=== PATIENT | female | born 1990 | race African-American/Black ===

== ENCOUNTER 2016-09-17 21:55 | Inpatient (IN) | payer OTHER ==
[2016-09-18] MEDS: LACTATED RINGERS 1,000 ML IV SCH ×2 (00:42→07:16)
--- NOTE | 2016-09-18 05:02 | P.HPOB ---
History of Present Illness H&P Date: 09/18/16 Chief Complaint: IUP 39 weeks bradycardia: labor Patrica 26 at 39 weeks gestation arrives complaining of contractions. She notes she had contractions much of the day but thin gotten worse through the evening and were strong enough that she felt she did come in. 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 However due to history of rapid labor with her last baby we did keep her for another hour and she went from 3 cm to 4 cm. It was also noted through this process that the heart tones initially had a baseline of about 1:15 and reactive to baseline over the next few hours showed trending down to the baseline in the 110 and still reactive. While it did not appear she was in active labor we did admit her for continued monitoring and to rule out early labor. Approximately 4:00 we did call me to let me know at the baby's heart tones had settled to baseline was closer to 100 therefore came into the hospital and evaluated the patient. heart tones to have baseline between 95 and 100 at this time with accelerations to the 120s. There is no evidence looking to monitor teaser decelerations and it did not appear to have any tendency to be related to the contractions that she is having. She is having relatively irregular contractions at this time. After discussing with the patient our findings are is been decided to go ahead and do artificial rupture membranes we can have an internal scalp electrode placed and have better understanding of what is going on with her heart tones. Patient had copious amounts of clear amniotic fluid? Polyhydramnios. An internal scalp electrode was easily placed and now we will be able to up cervix the heart tones a little bit more easily. We'll likely start Pitocin shortly after we evaluate how the baby tolerates the rupture of membranes. She's currently dilated to 5 cm 90% effaced and -3 station. On physical exam vital signs are stable she is afebrile. Heart regular, lungs clear, extremities without pain. Gravid uterus is noted. Assessment intrauterine at 39 weeks. Plan induction of labor Past Medical History Past Medical History: No Reported History Additional Past Medical History / Comment(s): Vaginal bleeding History of Any Multi-Drug Resistant Organisms: None Reported Past Surgical History: No Surgical Hx Reported Additional Past Surgical History / Comment(s): [place] teeth, D&C 10/2015 Past Anesthesia/Blood Transfusion Reactions: No Reported Reaction Past Psychological History: Depression Additional Psychological History / Comment(s): effexor pre- Smoking Status: Never smoker Past Alcohol Use History: None Reported Past Drug Use History: None Reported - Past Family History Mother Family Medical History: Cancer Additional Family Medical History / Comment(s): Pancreatic Father Family Medical History: Cancer Additional Family Medical History / Comment(s): Lung Medications and Allergies Home Medications Medication Instructions Recorded Confirmed Type Pnv with Ca,No.72/Iron/FA [Pnv 1 tab PO DAILY 09/05/16 09/17/16 History Plus Multivit Tab] Allergies Allergy/AdvReac Type Severity Reaction Status Date / Time No Known Allergies Allergy Verified 09/17/16 22:12 Exam Osteopathic Statement: *. No significant issues noted on an osteopathic structural exam other than those noted in the History and Physical/Consult. - Vital Signs Vital signs: Vital Signs Temp Pulse Resp BP Pulse Ox 09/18/16 00:38 97.1 F L 66 14 115/58 100 09/17/16 22:13 97.0 F L 80 14 119/57 100 Intake and Output 09/17/16 09/17/16 09/18/16 14:59 22:59 06:59 Other: # Voids 1 Weight 58.967 kg Patient Weight 09/18/16 06:59 Weight 58.967 kg - OBG Physical Exam Breast: both: normal (no masses) Abdomen: bowel sounds normal, no diffuse tenderness, no bruit present, no guarding noted, no hepatomegaly, no splenomegaly, no mass Vulva: both: normal Vagina: normal moisture, no discharge Cervix: no lesion, no discharge Uterus: normal size, normal contour Adnexa: both: normal Anus/Rectum: normal perianal skin, no rectal mass, no hemorrhoids, heme negative
[2016-09-18] MEDS ORDERED: LIDOCAINE 1% (PF) 10 MG/ML (30 ML SDV) SQ PRN (05:05)
[2016-09-18] MEDS ORDERED: OXYTOCIN 10 UNIT/ML 1 ML VIAL IM PRN (05:05)
[2016-09-18] MEDS ORDERED: CARBOPROST TROMETHAMINE 250 MCG/ML 1 ML AMP IM PRN (05:05)
[2016-09-18] MEDS ORDERED: TERBUTALINE 1 MG/ML VIAL SQ PRN (05:05)
[2016-09-18] MEDS ORDERED: METHYLERGONOVINE 0.2 MG/ML 1 ML AMP IM PRN (05:05)
[2016-09-18] MEDS ORDERED: LACTATED RINGERS 1,000 ML IV SCH (05:15)
[2016-09-18 05:31] LABS: Anisocytosis Slight; Basophils % (A) 1 %; CH 20.7; CHCM 29.5; Eosinophils # (A) 0.1 k/uL (0-0.7); Eosinophils % (A) 1 %; HCT 34.3 % (34.0-46.0); HDW 3.76; HGB 10.1 gm/dL (11.4-16.0); Hypochromasia Marked; Luc # (Auto) 0.33; Luc % (Auto) 4; Lymphocytes # (A) 2.1 k/uL (1.0-4.8); Lymphocytes % (A) 28 %; MCH 20.9 pg (25.0-35.0); MCHC 29.5 g/dL (31.0-37.0); MCV 70.9 fL (80.0-100.0); Mean Platelet Volume 8.8; Microcytosis Marked; Monocytes # (A) 0.6 k/uL (0-1.0); Monocytes % (A) 8 %; Neutrophils # (A) 4.3 k/uL (1.3-7.7); Neutrophils % (A) 58 %; Poikilocytosis Slight; RBC 4.85 m/uL (3.80-5.40); WBC 7.4 k/uL (3.8-10.6); WBC (Perox) 8.12
[2016-09-18] MEDS ORDERED: OXYTOCIN 30 UNITS/500 ML NS 30 UNIT in SALINE 1 500ML.BAG IV SCH ×2 (08:00→12:30)
[2016-09-18] MEDS ORDERED: BUTORPHANOL 1 MG/ML 1 ML VIAL IV PRN (09:10)
[2016-09-18 12:07] VITALS: RESP 16
[2016-09-18] MEDS ORDERED: Acetaminophen-Codeine 300-30mg TAB PO PRN ×2 (12:21)
[2016-09-18] MEDS ORDERED: diphenhydrAMINE 50 MG/ML 1 ML VIAL IVP PRN ×2 (12:21)
[2016-09-18] MEDS ORDERED: LANOLIN CREAM 5 GM TUBE TOPICAL PRN (12:21)
[2016-09-18] MEDS ORDERED: diphenhydrAMINE 50 MG CAP PO PRN (12:21)
[2016-09-18] MEDS ORDERED: diphenhydrAMINE 25 MG CAP PO PRN (12:21)
[2016-09-18] MEDS ORDERED: HYDROCORTISONE 2.5% RECTAL CREAM 30 GM TUBE RECTAL PRN (12:21)
[2016-09-18] MEDS ORDERED: SIMETHICONE 80 MG CHEWABLE PO PRN (12:21)
[2016-09-18] MEDS ORDERED: ACETAMINOPHEN TAB 325 MG TAB PO PRN (12:21)
[2016-09-18] MEDS ORDERED: ZOLPIDEM 5 MG TAB PO PRN (12:21)
[2016-09-18] MEDS: IBUPROFEN 600 MG TAB PO PRN ×2 (12:35→19:49)
--- NOTE | 2016-09-18 17:02 | P.PROBDLV ---
Vaginal Delivery Note - . Vaginal Delivery Note: 26-year-old presented at 39 weeks gestation complaining of contractions. Please see Dr. Nunn's dictation for details on admission. Amniotomy was performed at 4:53 AM and clear fluid noted. After 2 hours she was still 5 cm dilated, 80% effaced, and -2 station. Pitocin augmentation was started. She progressed to complete at 11:03 AM, pushed, and delivered a viable female over intact perineum at 11:10 AM. Head delivered OA, anterior shoulder delivered gentle downward traction followed by posterior shoulder and rest of body. Nose and mouth bulb suctioned, cord clamped and cut, infant placed mother 's abdomen. Apgars 6 at 1 minute, 7 at 5 minutes, 7 at 10 minutes. Weight was 5 lbs. 12 oz. Placenta delivered spontaneously, intact with three-vessel cord at 11:12 AM. Vagina, cervix, perineum inspected. No lacerations noted. Mother and baby in stable condition.
[2016-09-18] MEDS: SENNOSIDES-DOCUSATE SODIUM 1 EACH TAB PO SCH (19:49)
[2016-09-19] MEDS: SENNOSIDES-DOCUSATE SODIUM 1 EACH TAB PO SCH (07:33)
[2016-09-19] MEDS: IBUPROFEN 600 MG TAB PO PRN (07:34)
--- NOTE | 2016-09-19 08:43 | P.PNOBGVD ---
Subjective - Subjective Principal diagnosis: Status post normal vaginal delivery day #1 Interval history: Patient seen and examined. Denies nausea, vomiting, chest pain, #breath or calf pain. Patient reports: Reports appetite normal, Reports voiding normally, Reports pain well controlled, Reports ambulating normally Objective - Latest Vital Signs Latest vital signs: Vital Signs Temp Pulse Resp BP Pulse Ox 09/19/16 07:41 98.3 F 65 16 105/64 100 09/19/16 04:00 98.4 F 70 16 92/41 100 09/19/16 00:00 97.5 F L 62 16 92/44 09/18/16 20:00 99.5 F 66 16 102/60 100 09/18/16 16:40 97.4 F L 73 16 98/48 100 09/18/16 16:35 73 16 09/18/16 13:18 96.9 F L 68 16 115/55 09/18/16 12:48 16 09/18/16 12:18 63 16 104/58 09/18/16 12:03 66 16 98/50 09/18/16 11:48 60 16 101/52 09/18/16 11:33 65 16 98/63 09/18/16 11:18 96.6 F L 60 16 97/55 Intake and Output 09/18/16 09/19/16 09/19/16 22:59 06:59 14:59 Other: Voiding Method Toilet Toilet # Voids 3 1 2 # Bowel Movements 0 1 - Exam Lungs: bilateral: normal Chest: Normal S1, Normal S2 Extremities: Present: normal Abdomen: Present: normal appearance, soft Uterus: Present: normal, firm Assessment and Plan (1) Normal vaginal delivery Narrative/Plan: 1. Continue care Current Visit: Yes Status: Acute Code(s): O80 - ENCOUNTER FOR FULL-TERM UNCOMPLICATED DELIVERY SNOMED Code(s): 13020626
[2016-09-19 13:58] VITALS: TEMP 98
[2016-09-19 16:05] VITALS: BP 98/55; PULSE 65
--- NOTE | 2016-09-19 16:47 | P.DS ---
Providers Date of admission: 09/18/16 12:22 Expected date of discharge: 09/19/16 Attending physician: Maranda Gonzalez Primary care physician: Basilio Nunn - Discharge Diagnosis(es) (1) Normal vaginal delivery Current Visit: Yes Status: Acute Hospital Course: Patient presented in labor. She underwent a normal vaginal delivery and had an uncomplicated post course. She will be discharged home PPD #1 in stable condition to follow up with me in 6 weeks. Plan - Discharge Summary New Discharge Prescriptions: Acetaminophen-Codeine 300-30mg [Tylenol w/codeine #3] 2 each PO Q4HR PRN #30 tab PRN Reason: Moderate To Severe Pain Docusate [Colace] 100 mg PO BID #60 capsule Ibuprofen [Motrin] 600 mg PO Q6HR PRN #30 tab PRN Reason: Mild Pain Or Fever >= 100.5 Sertraline HCl [Zoloft] 25 mg PO DAILY #30 tab Discharge Medication List Pnv with Ca,No.72/Iron/FA [Pnv Plus Multivit Tab] 1 tab PO DAILY [History] Acetaminophen-Codeine 300-30mg [Tylenol w/codeine #3] 2 each PO Q4HR PRN #30 tab 09/19/16 [Rx] Docusate [Colace] 100 mg PO BID #60 capsule 09/19/16 [Rx] Ibuprofen [Motrin] 600 mg PO Q6HR PRN #30 tab 09/19/16 [Rx] Sertraline HCl [Zoloft] 25 mg PO DAILY #30 tab 09/19/16 [Rx] Follow up Appointment(s)/Referral(s): Maranda Gonzalez DO [Doctor of Osteopathic Medicine] - 6 Weeks
== END 2016-09-19 19:16 | disposition home or self-care (01) | DRG 775 ==
LOC: FBPOP 21:55 → 4FBP 09-18 00:28 → OBSVTOIN 09-18 12:22
PROVIDERS: ADMIT Obstetrics & Gynecology; ATTEND Obstetrics & Gynecology
PROC: 10E0XZZ Delivery of Products of Conception, External Approach (ICD-10-PCS; principal; 2016-09-18)
PROC: 10907ZC Drainage of Amniotic Fluid, Therapeutic from Products of Conception, Via Natural or Artificial Opening (ICD-10-PCS; 2016-09-18)
PROC: 4A1H7CZ Monitoring of Products of Conception, Cardiac Rate, Via Natural or Artificial Opening (ICD-10-PCS; 2016-09-18)
PROC: 10H073Z Insertion of Monitoring Electrode into Products of Conception, Via Natural or Artificial Opening (ICD-10-PCS; 2016-09-18)
DX: O40.3XX0 Polyhydramnios, third trimester, not applicable or unspecified (principal); O99.344 Other mental disorders complicating childbirth; F32.9 Major depressive disorder, single episode, unspecified; Z37.0 Single live birth; Z3A.39 39 weeks gestation of pregnancy; Z80.0 Family history of malignant neoplasm of digestive organs; Z80.1 Family history of malignant neoplasm of trachea, bronchus and lung
CPT/HCPCS: 59025; 85025; 88307; 99213

== ENCOUNTER 2017-07-29 19:32 | Emergency (ER) | payer OTHER ==
[2017-07-29 19:59] VITALS: RESP 18
[2017-07-29 21:15] LABS: Amphetamine Screen,Urine Not Detected (NotDetected); Barbiturate Screen,Urine Not Detected (NotDetected); Benzodiazepines Screen,Urine Not Detected (NotDetected); Cocaine Screen,Urine Not Detected (NotDetected); Methadone Screen, Urine Not Detected (NotDetected); Opiate Screen,Urine Not Detected (NotDetected); Oxycodone Screen, Urine Not Detected (NotDetected); Phencyclidine Screen,Urine Not Detected (NotDetected); Tricyclic Antidepressant,Urine Not Detected (NotDetected); Urn Cannabinoid Scrn Detected (NotDetected)
--- NOTE | 2017-07-29 21:55 | ED ---
Psych HPI - General Chief Complaint: Psychiatric Symptoms Stated Complaint: Mental Health Time Seen by Provider: 07/29/17 20:07 Source: patient, police, RN notes reviewed Mode of arrival: ambulatory - History of Present Illness Initial Comments: This is a 27-year-old female history depression who was brought here for evaluation for depression. She apparently been having arguments with her daughter's father. She is here being depressed the patient denies any suicidal thoughts or ideation or homicidal thoughts or ideation she's not sure why she is here she denies any drug or alcohol use. He has no other complaints and no other issues are reported at this time. MD Complaint: other - Related Data Home Medications Medication Instructions Recorded Confirmed Multivitamins, Thera [Multivitamin 1 tab PO DAILY 07/29/17 07/29/17 (formulary)] Allergies Allergy/AdvReac Type Severity Reaction Status Date / Time No Known Allergies Allergy Verified 07/29/17 20:58 Review of Systems ROS Statement: Those systems with pertinent positive or pertinent negative responses have been documented in the HPI. ROS Other: All systems not noted in ROS Statement are negative. Past Medical History Past Medical History: No Reported History Additional Past Medical History / Comment(s): Vaginal bleeding History of Any Multi-Drug Resistant Organisms: None Reported Past Surgical History: No Surgical Hx Reported Additional Past Surgical History / Comment(s): [place] teeth, D&C 10/2015 Past Anesthesia/Blood Transfusion Reactions: No Reported Reaction Past Psychological History: Depression Smoking Status: Never smoker Past Alcohol Use History: None Reported Past Drug Use History: None Reported - Past Family History Mother Family Medical History: Cancer Additional Family Medical History / Comment(s): Pancreatic Father Family Medical History: Cancer Additional Family Medical History / Comment(s): Lung General Exam - General Exam Comments Initial Comments: This is a well-developed well-nourished awake alert oriented 3 female Limitations: no limitations General appearance: alert, in no apparent distress Head exam: Present: atraumatic, normocephalic, normal inspection Eye exam: Present: normal appearance, PERRL, EOMI. Absent: scleral icterus, conjunctival injection, periorbital swelling ENT exam: Present: normal exam, mucous membranes moist Neck exam: Present: normal inspection. Absent: tenderness, meningismus, lymphadenopathy Respiratory exam: Present: normal lung sounds bilaterally. Absent: respiratory distress, wheezes, rales, rhonchi, stridor Cardiovascular Exam: Present: regular rate, normal rhythm, normal heart sounds. Absent: systolic murmur, diastolic murmur, rubs, gallop, clicks GI/Abdominal exam: Present: soft, normal bowel sounds. Absent: distended, tenderness, guarding, rebound, rigid Extremities exam: Present: normal inspection, full ROM, normal capillary refill. Absent: tenderness, pedal edema, joint swelling, calf tenderness Back exam: Present: normal inspection Neurological exam: Present: alert, oriented X3, CN II-XII intact Psychiatric exam: Present: normal affect, normal mood Skin exam: Present: warm, dry, intact, normal color. Absent: rash Course Vital Signs 07/29/17 19:56 Temperature 98.4 F Pulse Rate 71 Respiratory 18 Rate Blood Pressure 113/72 O2 Sat by Pulse 98 Oximetry Medical Decision Making - Medical Decision Making The patient was evaluated by [facility] and currently is not a risk for Zofran well she will be discharged. - Lab Data Lab Results 07/29/17 07/29/17 Range/Units 20:20 20:20 Urine HCG, Qual Not Detected (Not Detectd) Urine Opiates Screen Not Detected (NotDetected) Ur Oxycodone Screen Not Detected (NotDetected) Urine Methadone Screen Not Detected (NotDetected) Ur Propoxyphene Screen Not Detected (NotDetected) Ur Barbiturates Screen Not Detected (NotDetected) U Tricyclic Antidepress Not Detected (NotDetected) Ur Phencyclidine Scrn Not Detected (NotDetected) Ur Amphetamines Screen Not Detected (NotDetected) U Methamphetamines Scrn Not Detected (NotDetected) U Benzodiazepines Scrn Not Detected (NotDetected) Urine Cocaine Screen Not Detected (NotDetected) U Marijuana (THC) Screen Detected H (NotDetected) Disposition Clinical Impression: Depression, Feared condition not demonstrated Disposition: HOME SELF-CARE Condition: Good Instructions: Depression (ED) Referrals: Gino Montero MD [Primary Care Provider] - 1-2 days
[2017-07-29 22:30] VITALS: BP 134/87; PULSE 87; TEMP 97.8
== END 2017-07-29 22:30 | disposition home or self-care (01) ==
LOC: EC 19:32
DX: F32.9 Major depressive disorder, single episode, unspecified (principal); Z71.1 Person with feared health complaint in whom no diagnosis is made; Z79.899 Other long term (current) drug therapy
CPT/HCPCS: 80306; 81025; 82075; 99284

== ENCOUNTER 2017-12-30 16:00 | Emergency (ER) | payer OTHER ==
--- NOTE | 2017-12-30 17:08 | ED ---
Psych HPI - General Chief Complaint: Psychiatric Symptoms Stated Complaint: Mental Health Time Seen by Provider: 12/30/17 16:30 Source: patient, RN notes reviewed, old records reviewed Mode of arrival: ambulatory - History of Present Illness Initial Comments: This Patient is a 27-year-old female presents emergency department today with mood imbalance. Patient reports that she's been at work today and she went from a half ago to a sudden very angry crabby mood. 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 Today while she was at work she wanted to cause of the arms and pupils she was talking to. She states that this seemed abnormal for her and she fell he she did have a psychiatric evaluation. She denies a suicidal thoughts. She reports that she takes Lamictal and Prozac. Patient states that she has been on his medications for quite some time. She does see a psychiatrist, however currently she is in between primary care providers and is trying to find a new psychiatrist as well. - Related Data Home Medications Medication Instructions Recorded Confirmed Multivitamins, Thera [Multivitamin 1 tab PO HS 07/29/17 12/30/17 (formulary)] Sertraline [Zoloft] 100 mg PO HS 12/30/17 12/30/17 lamoTRIgine [LaMICtal] 100 mg PO HS 12/30/17 12/30/17 Allergies Allergy/AdvReac Type Severity Reaction Status Date / Time No Known Allergies Allergy Verified 12/30/17 16:36 Review of Systems ROS Statement: Those systems with pertinent positive or pertinent negative responses have been documented in the HPI. ROS Other: All systems not noted in ROS Statement are negative. Past Medical History Past Medical History: No Reported History Additional Past Medical History / Comment(s): Vaginal bleeding History of Any Multi-Drug Resistant Organisms: None Reported Past Surgical History: No Surgical Hx Reported Additional Past Surgical History / Comment(s): [place] teeth, D&C 10/2015 Past Anesthesia/Blood Transfusion Reactions: No Reported Reaction Past Psychological History: Depression Smoking Status: Never smoker Past Alcohol Use History: None Reported Past Drug Use History: None Reported - Past Family History Mother Family Medical History: Cancer Additional Family Medical History / Comment(s): Pancreatic Father Family Medical History: Cancer Additional Family Medical History / Comment(s): Lung General Exam - General Exam Comments Initial Comments: Patient is a 27-year-old female. Patient is alert and oriented. No significant distress. Limitations: no limitations General appearance: alert, in no apparent distress Head exam: Present: atraumatic, normocephalic, normal inspection Eye exam: Present: normal appearance, PERRL, EOMI. Absent: scleral icterus, conjunctival injection, periorbital swelling ENT exam: Present: normal exam, mucous membranes moist Neck exam: Present: normal inspection. Absent: tenderness, meningismus, lymphadenopathy Respiratory exam: Present: normal lung sounds bilaterally. Absent: respiratory distress, wheezes, rales, rhonchi, stridor Cardiovascular Exam: Present: regular rate, normal rhythm, normal heart sounds. Absent: systolic murmur, diastolic murmur, rubs, gallop, clicks GI/Abdominal exam: Present: soft, normal bowel sounds. Absent: distended, tenderness, guarding, rebound, rigid Extremities exam: Present: normal inspection, full ROM, normal capillary refill. Absent: tenderness, pedal edema, joint swelling, calf tenderness Back exam: Present: normal inspection Neurological exam: Present: alert, oriented X3, CN II-XII intact Psychiatric exam: Present: normal affect, normal mood, other (Reports frequent fluctuations of mood. She's been stable while in the emergency department.Calm and Collected.) Skin exam: Present: warm, dry, intact, normal color. Absent: rash Course Vital Signs 12/30/17 16:25 Temperature 98.2 F Pulse Rate 108 H Respiratory 18 Rate Blood Pressure 122/72 O2 Sat by Pulse 99 Oximetry Medical Decision Making - Medical Decision Making Chest [id number]-old female presents with fluctuations mood. Is on no for medication are Stable. No suicidal homicidal ideation. Patient was fired by [employer]. They feel Patient is stable for discharge. Given referrals for outpatient treatment plans. Patient be discharged at this time. Disposition Clinical Impression: Mood disorder Disposition: HOME SELF-CARE Condition: Good Instructions: Mood Disorders (ED) Is patient prescribed a controlled substance at d/c from ED?: No When asked, does pt state using other controlled substances?: No If prescribed controlled substance>3 days was MAPS reviewed?: No If opioid is for acute pain is fill amount 7 days or less?: No If Rx opioid, was Start Talking consent form obtained?: No Referrals: Stephanie Perez MD [Primary Care Provider] - 1-2 days Time of Disposition: 17:51
[2017-12-30 18:46] VITALS: BP 120/78; PULSE 76; RESP 18; TEMP 98.6
== END 2017-12-30 18:45 | disposition home or self-care (01) ==
LOC: EC 16:00
DX: F39 Unspecified mood [affective] disorder (principal); F32.9 Major depressive disorder, single episode, unspecified; Z79.899 Other long term (current) drug therapy
CPT/HCPCS: 82075; 99284

== ENCOUNTER 2018-02-02 22:23 | Inpatient (IN) | payer MEDICAID, OTHER ==
[2018-02-02 23:59] LABS: Anisocytosis Slight; Basophils % (A) 0 %; Eosinophils # (A) 0.1 k/uL (0-0.7); Eosinophils % (A) 2 %; HCT 33.6 % (34.0-46.0); HGB 10.7 gm/dL (11.4-16.0); Hypochromasia Slight; Lymphocytes # (A) 1.2 k/uL (1.0-4.8); Lymphocytes % (A) 32 %; MCHC 31.9 g/dL (31.0-37.0); MCV 75.1 fL (80.0-100.0); Mean Platelet Volume 7.6; Microcytosis Moderate; Monocytes # (A) 0.2 k/uL (0-1.0); Monocytes % (A) 6 %; Neutrophils # (A) 2.1 k/uL (1.3-7.7); Neutrophils % (A) 57 %; Platelet Count 236 k/uL (150-450); RBC 4.48 m/uL (3.80-5.40); RDW 17.9 % (11.5-15.5); WBC 3.7 k/uL (3.8-10.6)
[2018-02-03 00:04] LABS: Appearance,Urine Cloudy (Clear); Bacteria,Urine Rare /hpf; Bilirubin,Urine Negative (Negative); Blood,Urine Negative (Negative); Color,Urine Yellow; Glucose,Urine (UA) Negative (Negative); Ketones,Urine Negative (Negative); Leukocyte Esterase,Urine Negative (Negative); Mucus,Urine Rare /hpf; Nitrite,Urine Negative (Negative); PH, Urine 6.5 (5.0-8.0); Protein,Urine Trace (Negative); RBC,Urine 2 /hpf (0-5); Specific Gravity,Urine 1.011 (1.001-1.035); Squamous Epithelial Cell,Urine 3 /hpf (0-4); Urobilinogen,Urine <2.0 mg/dL (<2.0); WBC,Urine 3 /hpf (0-5)
--- NOTE | 2018-02-03 00:10 | ED ---
General Adult HPI - General Chief complaint: Psychiatric Symptoms Stated complaint: mental health Time Seen by Provider: 02/02/18 22:30 Source: patient, EMS, RN notes reviewed Mode of arrival: EMS Limitations: no limitations - History of Present Illness Initial comments: 27 her old female since to the emergency department for a psych eval. Patient states that over the past few months she has been feeling more depressed and has had "a lot going on." Patient admits to suicidal ideation. Patient states that today she threatened to hit herself with a hammer. Patient states that at this time she is no longer feeling suicidal. Patient denies homicidal thoughts. Patient has no other complaints at this time including shortness of breath, chest pain, abdominal pain, nausea or vomiting, headache, or visual changes. - Related Data Home Medications Medication Instructions Recorded Confirmed Multivitamins, Thera [Multivitamin 1 tab PO HS 07/29/17 12/30/17 (formulary)] Sertraline [Zoloft] 100 mg PO HS 12/30/17 12/30/17 lamoTRIgine [LaMICtal] 100 mg PO HS 12/30/17 12/30/17 Allergies Allergy/AdvReac Type Severity Reaction Status Date / Time No Known Allergies Allergy Verified 12/30/17 16:36 Review of Systems ROS Statement: Those systems with pertinent positive or pertinent negative responses have been documented in the HPI. ROS Other: All systems not noted in ROS Statement are negative. Past Medical History Past Medical History: No Reported History Additional Past Medical History / Comment(s): Vaginal bleeding History of Any Multi-Drug Resistant Organisms: None Reported Past Surgical History: No Surgical Hx Reported Additional Past Surgical History / Comment(s): [place] teeth, D&C 10/2015 Past Anesthesia/Blood Transfusion Reactions: No Reported Reaction Past Psychological History: Depression Smoking Status: Never smoker Past Alcohol Use History: None Reported Past Drug Use History: None Reported - Past Family History Mother Family Medical History: Cancer Additional Family Medical History / Comment(s): Pancreatic Father Family Medical History: Cancer Additional Family Medical History / Comment(s): Lung General Exam Limitations: no limitations General appearance: alert, in no apparent distress (laying in bed cooperative and pleasant) Head exam: Present: atraumatic, normocephalic, normal inspection Eye exam: Present: normal appearance. Absent: scleral icterus, conjunctival injection ENT exam: Present: normal exam, mucous membranes moist Neck exam: Present: normal inspection. Absent: tenderness, meningismus, lymphadenopathy Respiratory exam: Present: normal lung sounds bilaterally. Absent: respiratory distress, wheezes, rales, rhonchi, stridor Cardiovascular Exam: Present: regular rate, normal rhythm, normal heart sounds. Absent: systolic murmur, diastolic murmur, rubs, gallop, clicks Neurological exam: Present: alert, oriented X3, CN II-XII intact Psychiatric exam: Present: normal affect, normal mood, suicidal ideation. Absent: homicidal ideation Skin exam: Present: warm, dry, intact, normal color. Absent: rash Course Vital Signs 02/02/18 22:39 Temperature 97 F L Pulse Rate 74 Respiratory 18 Rate Blood Pressure 108/60 O2 Sat by Pulse 98 Oximetry EKG Findings - EKG Comments: EKG Findings:: Normal sinus rhythm, ventricular rate 63, UT interval 142, QRS duration 92 Medical Decision Making - Medical Decision Making 27-year-old female presents to the emergency department for chief complaint of suicidal ideation. Patient threatened to hit herself with a hammer. Patient denies homicidal thoughts. Patient denies any medical complications. EPS evaluated patient and recommended inpatient treatment. - Lab Data Result diagrams: 02/02/18 23:30 Lab Results 02/02/18 02/02/18 02/02/18 Range/Units 23:30 23:30 23:30 WBC 3.7 L (3.8-10.6) k/uL RBC 4.48 (3.80-5.40) m/uL Hgb 10.7 L (11.4-16.0) gm/dL Hct 33.6 L (34.0-46.0) % MCV 75.1 L (80.0-100.0) fL MCH 24.0 L (25.0-35.0) pg MCHC 31.9 (31.0-37.0) g/dL RDW 17.9 H (11.5-15.5) % Plt Count 236 (150-450) k/uL Neutrophils % 57 % Lymphocytes % 32 % Monocytes % 6 % Eosinophils % 2 % Basophils % 0 % Neutrophils # 2.1 (1.3-7.7) k/uL Lymphocytes # 1.2 (1.0-4.8) k/uL Monocytes # 0.2 (0-1.0) k/uL Eosinophils # 0.1 (0-0.7) k/uL Basophils # 0.0 (0-0.2) k/uL Hypochromasia Slight Anisocytosis Slight Microcytosis Moderate Urine Color Yellow Urine Appearance Cloudy H (Clear) Urine pH 6.5 (5.0-8.0) Ur Specific [place] 1.011 (1.001-1.035) Urine Protein Trace H (Negative) Urine Glucose (UA) Negative (Negative) Urine Ketones Negative (Negative) Urine Blood Negative (Negative) Urine Nitrite Negative (Negative) Urine Bilirubin Negative (Negative) Urine Urobilinogen <2.0 (<2.0) mg/dL Ur Leukocyte Esterase Negative (Negative) Urine RBC 2 (0-5) /hpf Urine WBC 3 (0-5) /hpf Ur Squamous Epith Cells 3 (0-4) /hpf Urine Bacteria Rare H (None) /hpf Urine Mucus Rare H (None) /hpf Urine HCG, Qual Not Detected (Not Detectd) Disposition Clinical Impression: Psychiatric complaint Disposition: ADMITTED IP TO THIS [facility] Condition: Good Is patient prescribed a controlled substance at d/c from ED?: No Referrals: Stephanie Perez MD [Primary Care Provider] - 1-2 days Time of Disposition: 00:10
[2018-02-03 00:12] LABS: Amphetamine Screen,Urine Not Detected (NotDetected); Barbiturate Screen,Urine Not Detected (NotDetected); Benzodiazepines Screen,Urine Not Detected (NotDetected); Cocaine Screen,Urine Not Detected (NotDetected); Methadone Screen, Urine Not Detected (NotDetected); Opiate Screen,Urine Not Detected (NotDetected); Oxycodone Screen, Urine Not Detected (NotDetected); Phencyclidine Screen,Urine Not Detected (NotDetected); Tricyclic Antidepressant,Urine Not Detected (NotDetected); Urn Cannabinoid Scrn Detected (NotDetected)
[2018-02-03 00:20] LABS: ALT 20 U/L (9-52); AST 22 U/L (14-36); Albumin 4.2 g/dL (3.5-5.0); Alkaline Phosphatase 53 U/L (38-126); Anion Gap 8 mmol/L; Blood Urea Nitrogen 8 mg/dL (7-17); Calcium 9.3 mg/dL (8.4-10.2); Carbon Dioxide 25 mmol/L (22-30); Chloride 105 mmol/L (98-107); Glucose 93 mg/dL (74-99); Potassium 3.3 mmol/L (3.5-5.1); Sodium 138 mmol/L (137-145); Total Bilirubin 0.8 mg/dL (0.2-1.3); Total Protein 6.8 g/dL (6.3-8.2)
[2018-02-03] MEDS ORDERED: MAGNESIUM HYDROXIDE 2,400 MG/10 ML CUP PO PRN (00:30)
[2018-02-03] MEDS ORDERED: ACETAMINOPHEN TAB 325 MG TAB PO PRN (00:30)
[2018-02-03] MEDS ORDERED: ZIPRASIDONE 20 MG VIAL IM PRN (00:30)
[2018-02-03] MEDS ORDERED: MAG HYDROX/AL HYDROX/SIMETH 30 ML CUP PO PRN (00:30)
[2018-02-03] MEDS ORDERED: LORazepam 1 MG TAB PO PRN (00:30)
[2018-02-03 01:13] VITALS: BMI 16.8
[2018-02-03 10:36] LABS: Anion Gap 9 mmol/L; Blood Urea Nitrogen 8 mg/dL (7-17); Calcium 9.1 mg/dL (8.4-10.2); Carbon Dioxide 25 mmol/L (22-30); Chloride 105 mmol/L (98-107); Glucose 82 mg/dL (74-99); Potassium 3.2 mmol/L (3.5-5.1); Sodium 139 mmol/L (137-145)
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
[2018-02-03] MEDS ORDERED: POTASSIUM CHLORIDE ER 20 MEQ TAB.ER PO STA (13:02)
--- NOTE | 2018-02-03 14:39 | P.CONS ---
History of Present Illness - Reason for Consult Medical clearance hypokalemia - History of Present Illness Patient is 27-year-old female with no major medical problems with history of major depression admitted to psychiatric floor. Patient denied any chest pain, nausea, vomiting, abdominal pain patient and dysuria. Patient is mildly hypokalemic potassium will be supplemented with 40 mEq of oral potassium. Patient denied any physical complaints as mentioned above. Review of Systems REVIEW OF SYSTEMS: CONSTITUTIONAL: No fever, no malaise, no fatigue. HEENT: No recent visual problems or hearing problems. Denied any sore throat. CARDIOVASCULAR: No chest pain, orthopnea, PND, no palpitations, no syncope. PULMONARY: No shortness of breath, no cough, no hemoptysis. GASTROINTESTINAL: No diarrhea, no nausea, no vomiting, no abdominal pain. Normoactive bowel sounds. NEUROLOGICAL: No headaches, no weakness, no numbness. HEMATOLOGICAL: Denies any bleeding or petechiae. GENITOURINARY: Denies any burning micturition, frequency, or urgency. MUSCULOSKELETAL/RHEUMATOLOGICAL: Denies any joint pain, swelling, or any muscle pain. ENDOCRINE: Denies any polyuria or polydipsia. The rest of the 14-point review of systems is negative. Past Medical History Past Medical History: No Reported History Additional Past Medical History / Comment(s): Vaginal bleeding History of Any Multi-Drug Resistant Organisms: None Reported Past Surgical History: No Surgical Hx Reported Additional Past Surgical History / Comment(s): D&C 10/2015 Past Anesthesia/Blood Transfusion Reactions: No Reported Reaction Past Psychological History: Depression Additional Psychological History / Comment(s): effexor pre- Smoking Status: Never smoker Past Alcohol Use History: None Reported Past Drug Use History: None Reported - Past Family History Mother Family Medical History: Cancer Additional Family Medical History / Comment(s): Pancreatic Father Family Medical History: Cancer Additional Family Medical History / Comment(s): Lung Daughter(s) Family Medical History: No Reported History Medications and Allergies Home Medications Medication Instructions Recorded Confirmed Type Sertraline [Zoloft] 100 mg PO DIRECTED 12/30/17 02/03/18 History lamoTRIgine [LaMICtal] 100 mg PO DIRECTED 12/30/17 02/03/18 History Trigg-Linyah 1 tab PO DIRECTED 02/03/18 02/03/18 History Allergies Allergy/AdvReac Type Severity Reaction Status Date / Time No Known Allergies Allergy Verified 02/03/18 01:15 Physical Exam Vitals: Vital Signs Temp Pulse Pulse Resp BP BP Pulse Ox 02/03/18 01:06 97.1 F L 73 16 106/59 02/03/18 00:38 97 F L 60 18 98/55 99 02/02/18 22:39 97 F L 74 18 108/60 98 Intake and Output 02/02/18 02/03/18 02/03/18 22:59 06:59 14:59 Other: Weight 45.359 kg 44.452 kg PHYSICAL EXAMINATION: GENERAL: The patient is alert and oriented x3, not in any acute distress. Well developed, well nourished. HEENT: Pupils are round and equally reacting to light. EOMI. No scleral icterus. No conjunctival pallor. Normocephalic, atraumatic. No pharyngeal erythema. No thyromegaly. CARDIOVASCULAR: S1 and S2 present. No murmurs, rubs, or gallops. PULMONARY: Chest is clear to auscultation, no wheezing or crackles. ABDOMEN: Soft, nontender, nondistended, normoactive bowel sounds. No palpable organomegaly. MUSCULOSKELETAL: No joint swelling or deformity. EXTREMITIES: No cyanosis, clubbing, or pedal edema. NEUROLOGICAL: Gross neurological examination did not reveal any focal deficits. SKIN: No rashes. Results CBC & Chem 7: 02/02/18 23:30 02/03/18 09:57 Labs: Abnormal Lab Results - Last 24 Hours (Table) 02/02/18 02/02/18 02/02/18 Range/Units 23:30 23:30 23:30 WBC 3.7 L (3.8-10.6) k/uL Hgb 10.7 L (11.4-16.0) gm/dL Hct 33.6 L (34.0-46.0) % MCV 75.1 L (80.0-100.0) fL MCH 24.0 L (25.0-35.0) pg RDW 17.9 H (11.5-15.5) % Potassium 3.3 L (3.5-5.1) mmol/L Creatinine 0.50 L (0.52-1.04) mg/dL Urine Appearance Cloudy H (Clear) Urine Protein Trace H (Negative) Urine Bacteria Rare H (None) /hpf Urine Mucus Rare H (None) /hpf U Marijuana (THC) Screen (NotDetected) 02/02/18 02/03/18 Range/Units 23:30 09:57 WBC (3.8-10.6) k/uL Hgb (11.4-16.0) gm/dL Hct (34.0-46.0) % MCV (80.0-100.0) fL MCH (25.0-35.0) pg RDW (11.5-15.5) % Potassium 3.2 L (3.5-5.1) mmol/L Creatinine (0.52-1.04) mg/dL Urine Appearance (Clear) Urine Protein (Negative) Urine Bacteria (None) /hpf Urine Mucus (None) /hpf U Marijuana (THC) Screen Detected H (NotDetected) Assessment and Plan Plan: -Hypokalemia: Potassium will be supplemented etiology is unknown -Major depression: Management as per primary service We'll sign off at this point of time please call us back if needed
[2018-02-03] MEDS: MELATONIN 3 MG TABLET PO SCH (20:04)
[2018-02-03] MEDS: SERTRALINE 50 MG TAB PO SCH (20:04)
--- NOTE | 2018-02-04 12:13 | P.PN ---
Progress Note - Text Progress Note Date: 02/04/18 Interval History: Patient is a 27-year-old female who was seen today and she reports that she had a long discussion with staff member yesterday regarding her relationship with her fianc. She states that she is decided that the relationship is not progressing, that his parents response to her probably will not change and has decided to end the relationship. 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 She reports that she is feeling less overwhelmed having made the decision to end the relationship. She states that he currently has their daughter and that's not an issue for her at this point. She states that she was slightly nauseated this morning but is eating well and states that she felt rested this morning when she awakened. Patient reports that she is not having any suicidal thoughts Mental Status: Appearance/Attitude: Patient is dressed in a hospital gown, makes good eye contact and was cooperative. Behavior: Patient did not exhibit any psychomotor agitation or retardation. Speech/Language: Patient's speech is spontaneous of normal volume and rhythm and she is coherent Thought Process: Patient is goal-directed in her thought and there is no evidence of loose association or flight of ideas Thought Content: [ Patient denies any auditory or visual hallucinations and no delusions or paranoid ideation or elicited. Patient states that she decided to end the relationship with her fianc and feels comfortable with that decision. She states that she spoke with a staff member yesterday about her decision and sees that the relationship has not progressed. She states that she had a discussion with her fiance regarding their daughter last night that went well. She reports she is eating and sleeping well] Suicidal/Homicidal Ideation: [Patient denies any current suicidal or homicidal ideation Sensorium/Cognition: Patient is alert and oriented to person, place, and time and her recent and remote memory is grossly intact. Mood/Affect: Patient's mood is less depressed and her affect is appropriate Insight/Judgment: Patient's insight and judgment are intact Assessment: Patient states that she has decided in the relationship with her fianc as she sees that there is no way that his attitude will change nor will his parents towards her. 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 She reports no current suicidal ideation and states that she is feeling less depressed and less overwhelmed. She has been attending groups and activities and states that they have been helpful. Plan: Patient continue on Zoloft 50 mg, her prior dose was 100 mg and will increase after she has been on this dose for 3 days, she is also on melatonin 3 mg at bedtime to target her sleep. Patient and I discussed possible discharge later this week and she was agreeable with this plan.
[2018-02-04] MEDS: SERTRALINE 50 MG TAB PO SCH (20:53)
[2018-02-04] MEDS: MELATONIN 3 MG TABLET PO SCH (20:53)
[2018-02-05 07:09] VITALS: RESP 16
[2018-02-05 13:27] LABS: Anion Gap 7 mmol/L; Blood Urea Nitrogen 12 mg/dL (7-17); Calcium 9.6 mg/dL (8.4-10.2); Carbon Dioxide 29 mmol/L (22-30); Chloride 101 mmol/L (98-107); Glucose 79 mg/dL (74-99); Potassium 4.9 mmol/L (3.5-5.1); Sodium 137 mmol/L (137-145)
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
[2018-02-05] MEDS ORDERED: SERTRALINE 50 MG TAB PO SCH (21:00)
[2018-02-05] MEDS: MELATONIN 3 MG TABLET PO SCH (21:50)
[2018-02-06 06:59] VITALS: BP 100/47; PULSE 62; TEMP 97.7
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
== END 2018-02-06 14:10 | disposition home or self-care (01) | DRG 885 ==
LOC: EC 22:23 → 3MHU 02-03 00:27
PROVIDERS: ADMIT Psychiatry & Neurology Psychiatry; ATTEND Psychiatry & Neurology Psychiatry
DX: F33.1 Major depressive disorder, recurrent, moderate (principal); R45.851 Suicidal ideations; E87.6 Hypokalemia; F43.10 Post-traumatic stress disorder, unspecified; Z79.899 Other long term (current) drug therapy; Z91.5 Personal history of self-harm; Z62.810 Personal history of physical and sexual abuse in childhood; Z80.0 Family history of malignant neoplasm of digestive organs; Z80.1 Family history of malignant neoplasm of trachea, bronchus and lung; Z81.8 Family history of other mental and behavioral disorders
CPT/HCPCS: 36415; 80048; 80053; 80306; 81001; 81025; 82075; 84443; 85025; 93005; 99285

== ENCOUNTER → 2023-05-02 | Outpatient (CLI) | payer OTHER ==
--- NOTE | 2023-05-02 13:47 | CT ---
EXAMINATION TYPE: CT abdomen pelvis wo con CT DLP: 850 mGycm, Automated exposure control for dose reduction was used. DATE OF EXAM: 05/02/2023 1:00 PM COMPARISON: CT abdomen pelvis most recent from . CLINICAL INDICATION:Female, 32 years old with history of R18.00 abdominal bulge; abdominal bulge TECHNIQUE: Standard CT of the abdomen and pelvis without IV or oral contrast. Lack of IV or oral co ntrast limits evaluation of solid and hollow organ viscera. Coronal and sagittal reformats were perfo rmed. FINDINGS: LOWER CHEST: Linear scarring and/or atelectasis within the right middle lobe and bilateral lower lobe s. ABDOMEN LIVER: Subcentimeter hypodense focus within the right hepatic dome which is too small characters but likely represents a cyst. GALLBLADDER AND BILE DUCTS: Unremarkable. PANCREAS: Unremarkable. SPLEEN: Unremarkable. ADRENAL GLANDS: Unremarkable. KIDNEYS AND URETERS: No evidence of hydronephrosis or renal calculus. The ureters are unremarkable. PELVIS BLADDER: Unremarkable REPRODUCTIVE: IUD is present within the uterus. ABDOMEN & PELVIS STOMACH AND BOWEL: Stomach and duodenum are unremarkable. No focal bowel wall thickening or surroundi ng inflammatory changes. The appendix is within normal limits. No evidence of bowel obstruction. PERITONEUM: No evidence of pneumoperitoneum or free fluid. VASCULATURE: No evidence of aortic aneurysm. Several pelvic phleboliths. MUSCULOSKELETAL: No acute osseous abnormalities LYMPH NODES: No gross evidence for lymphadenopathy. SOFT TISSUE/ABDOMINAL WALL: Diastases rectus measuring approximately 8.5 cm in width. No hernia. IMPRESSION: 1. No acute intra-abdominal/pelvic process. 2. Diastases rectus corresponding to abdominal bulge.
== END | disposition home or self-care (01) ==
LOC: RADCTMAIN 12:43
PROVIDERS: ATTEND Family Medicine
DX: R19.09 Other intra-abdominal and pelvic swelling, mass and lump (principal); M62.08 Separation of muscle (nontraumatic), other site
CPT/HCPCS: 74176

== ENCOUNTER → 2024-03-19 | Outpatient (CLI) | payer OTHER ==
--- NOTE | 2024-03-19 12:00 | US ---
EXAMINATION TYPE: US kidneys/renal and bladder DATE OF EXAM: 03/19/2024 COMPARISON: 05/02/23 CLINICAL INDICATION: Female, 33 years old with history of N39.0 URINARY TRACT INFECTION, SITE NOT SPE CIFIED; recurrent UTI's EXAM MEASUREMENTS: Right Kidney: 9.4 x 5.4 x 4.6 cm Left Kidney: 10.2 x 4.8 x 4.3 cm Right Kidney: No hydronephrosis or masses seen Left Kidney: No hydronephrosis or masses seen Bladder: layer of debris seen Bilateral Jets seen: Yes There is no evidence for hydronephrosis at this point in time. No nephrolithiasis is seen. No chasidy s are identified. The urinary bladder is anechoic with layering debris which could be related to hig h proteinaceous or blood products. Could be secondary to infection.. Bilateral ureteral jets are see n. IMPRESSION: There is a very small amount of layering debris within the bladder. Could be related to chronic infec tion or blood product. Recommend correlation with urinalysis.
== END | disposition home or self-care (01) ==
LOC: RADUSWWP 08:51
PROVIDERS: ATTEND Family Medicine
DX: N39.0 Urinary tract infection, site not specified (principal)
CPT/HCPCS: 76770

== ENCOUNTER 2024-04-02 22:19 | Emergency (ER) | payer OTHER ==
[2024-04-02 22:24] VITALS: RESP 18
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
[2024-04-02] MEDS: methocarbamoL 500 MG TAB PO STA (23:21)
[2024-04-02] MEDS: ACETAMINOPHEN TAB 500 MG TAB PO STA (23:21)
[2024-04-02] MEDS: LIDOCAINE 4% PATCH TOPICAL ONE (23:22)
[2024-04-02] MEDS: KETOROLAC 15 MG/ML 1 ML VIAL IM STA (23:22)
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
[2024-04-03 00:56] VITALS: BP 118/80; PULSE 76; TEMP 98.1
== END 2024-04-03 00:56 | disposition home or self-care (01) ==
LOC: EC 22:19
CPT/HCPCS: 70450; 72100; 72125; 96372; 99284